=== PATIENT | female | born 1965 | race Two or more races ===

== ENCOUNTER 2020-11-01 09:26 | Emergency (ER) | payer MEDICAID ==
[~2020-11-01] VITALS: Ht 170.2 cm; Wt 79.6 kg
[2020-11-01] MEDS ORDERED: KETOROLAC 30 MG/1 ML ONE (13:22)
[2020-11-01] MEDS ORDERED: KETOROLAC 30 MG/1 ML IM ONE (13:30)
[2020-11-01 13:47] LABS: BASOPHILS % (AUTO) 1 % (0-1); EOSINOPHILS % (AUTO) 0 % (1-7); LYMPHOCYTES % (AUTO) 14 % (22-44); MEAN CORPUSCULAR HEMOGLOBIN 28.8 pg (27.0-34.8); MEAN CORPUSCULAR HGB CONC 33.9 g/dL (32.4-35.8); MEAN PLATELET VOLUME 7.5 fL (7.4-10.4); MONOCYTES % (AUTO) 7 % (2-9); NEUTROPHILS % (AUTO) 78 % (42-75); PLATELET COUNT 286 x10^3/uL (130-400); RED BLOOD COUNT 4.67 x10^6/uL (3.82-5.3); RED CELL DISTRIBUTION WIDTH 13.9 % (9.6-15.2)
[2020-11-01 13:56] LABS: ALANINE AMINOTRANSFERASE 63 U/L (12-78); ALBUMIN 3.6 g/dL (3.4-5.0); ANION GAP 7 mmol/L (5-15); CALCIUM 8.5 mg/dL (8.5-10.1); CHLORIDE 98 mmol/L (98-107); CREATININE 1.01 mg/dL (0.55-1.02)
[2020-11-01 14:00] LABS: ALKALINE PHOSPHATASE 134 U/L (45-117); BILIRUBIN,TOTAL 0.4 mg/dL (0.2-1.0); TOTAL PROTEIN 7.6 g/dL (6.4-8.2)
[2020-11-01 14:52] VITALS: BP 141/91
== END 2020-11-01 15:02 | disposition home or self-care (01) ==
LOC: ED 14:55
DX: U07.1 COVID-19 (principal); R06.02 Shortness of breath; F17.210 Nicotine dependence, cigarettes, uncomplicated
CPT/HCPCS: 36415; 71045; 80053; 85025; 96372; 99284; 99406; J1885; U0003; U0005